=== PATIENT | male | born 1965 | race Caucasian/White ===

== ENCOUNTER 2022-03-13 20:12 | Emergency (ER) | payer MEDICARE ==
[2022-03-13 23:45] LABS: BUN/CREATININE RATIO 34 (0-10)
[2022-03-14 00:26] LABS: HEMOGLOBIN 11.3 gm/dl (14.0-17.5); RED BLOOD COUNT 3.91 M/UL (4.20-5.50); WHITE BLOOD COUNT 14.5 K/UL (4.5-11.0)
[2022-03-14] MEDS ORDERED: HYDROXYZINE HCL25 MG PO (00:42)
== END 2022-03-14 01:40 | disposition home or self-care (01) ==
LOC: ER1 20:12
PROVIDERS: Student in an Organized Health Care Education/Training Program
DX: F41.9 Anxiety disorder, unspecified (principal); J44.9 Chronic obstructive pulmonary disease, unspecified; F17.210 Nicotine dependence, cigarettes, uncomplicated; Z86.73 Personal history of transient ischemic attack (TIA), and cerebral infarction without residual deficits
CPT/HCPCS: 71045; 80053; 82550; 82553; 84484; 85025; 96372; 99283; J1200; J1885